=== PATIENT | male | born 1960 | race Caucasian/White ===

== ENCOUNTER 2022-01-24 20:04 | Emergency (ER) | payer OTHER ==
--- NOTE | 2022-01-24 20:53 | RAD REPORT ---
EXAM DESCRIPTION: RAD - Pelvis - 01/24/2022 8:47 pm CLINICAL HISTORY: BLUNT TRAUMA COMPARISON: No comparisons TECHNIQUE: AP imaging of the pelvis was obtained. FINDINGS: No fracture of the pelvis identifiable. Lower lumbar degenerative changes are separately d etailed. Severe bilateral hip joint degenerative changes are present. Spurring changes are seen along the acetabular rim. Bilateral femoral head AVN is present. Numerous subcortical degenerative cysts a re present in each femoral head with flattened contour along each superior femoral head, right greate r than left. No proximal femur fracture seen. IMPRESSION: Severe bilateral hip joint degenerative change as detailed. No acute traumatic injury to the bony pelvis.
--- NOTE | 2022-01-24 20:55 | RAD REPORT ---
EXAM DESCRIPTION: RAD - Hip Left 2 View - 01/24/2022 8:47 pm CLINICAL HISTORY: PAIN COMPARISON: No comparisons FINDINGS: AP and frogleg views of the left hip were obtained. No acute fracture. No dislocation femoral head. Severe joint degenerative changes are present. Spurri ng is seen along the acetabular rim. Femoral head is grossly abnormal with numerous subcortical degen erative cystic changes seen. There is partial collapse of the superior margin femoral head. No fractu re of the proximal femur seen. No periarticular abnormality. Partially imaged left hemipelvis shows n o acute finding. No soft tissue abnormality. IMPRESSION: Advanced degenerative change with left femoral head AVN with partial collapse along the superior articular margin.
--- NOTE | 2022-01-24 20:56 | RAD REPORT ---
EXAM DESCRIPTION: RAD - Lumbar Spine 3 Views - 01/24/2022 8:47 pm CLINICAL HISTORY: PAIN COMPARISON: No comparisons FINDINGS: A three-view lumbar spine examination was performed. L2-L5 bodies are normal in height and alignment. Slight wedging of the L1 body is present. No lytic o r blastic component seen. Posterior wall height of L1 is preserved. Prominent mid and lower lumbar fa cet joint degenerative changes are present. No disc space narrowing. No pars defects identified. IMPRESSION: Slight wedging of the L1 body with posterior wall height preserved. No lytic or blastic component seen. Age of any slight L1 compression fracture can't be determined. Prominent facet joint degenerative change in the mid and lower lumbar spine.
[2022-01-24] MEDS ORDERED: HYDROCODONE/APAP 10/325 TAB ONE (21:42)
--- NOTE | 2022-01-24 22:02 | ER ---
Nurse's Notes [facility] Name: Stefan Fuentes Age: 61 yrs Sex: Male : 1960 Arrival Date: 01/24/2022 Time: 20:09 Bed 23 Private MD: Diagnosis: Contusion of left hip;Avascular necrosis left femoral head Presentation: 01/24 20:17 Chief complaint: Patient states: I fell hard on my left hip this morning - into the ld1 grass. Denies hitting head, no LOC. Coronavirus screen: At this time, the client does not indicate any symptoms associated with coronavirus-19. Ebola Screen: No symptoms or risks identified at this time. Initial Sepsis Screen: Does the patient meet any 2 criteria? No. Patient's initial sepsis screen is negative. Does the patient have a suspected source of infection? No. Patient's initial sepsis screen is negative. Risk Assessment: Do you want to hurt yourself or someone else? Patient reports no desire to harm self or others. Onset of symptoms was January 24, 2022. 20:17 Method Of Arrival: Ambulatory ld1 20:17 Acuity: EMILY 3 ld1 Triage Assessment: 20:19 General: Appears in no apparent distress. uncomfortable, Behavior is calm, cooperative, ld1 appropriate for age. Pain: Complains of pain in left hip Pain does not radiate. Pain currently is 9 out of 10 on a pain scale. Quality of pain is described as sharp, shooting, throbbing. EENT: No signs and/or symptoms were reported regarding the EENT system. Neuro: Level of Consciousness is awake, alert, obeys commands, Oriented to person, place, time, situation, Appropriate for age. Cardiovascular: Capillary refill < 3 seconds Patient's skin is warm and dry. Respiratory: Airway is patent Respiratory effort is even, unlabored. GI: Abdomen is flat, non-distended. : No signs and/or symptoms were reported regarding the genitourinary system. Derm: No signs and/or symptoms reported regarding the dermatologic system. Musculoskeletal: No signs and/or symptoms reported regarding the musculoskeletal system. Historical: - Allergies: 20:19 No Known Allergies; ld1 - PMHx: 20:19 Hypertensive disorder; ld1 - PSHx: 20:19 None; ld1 - Immunization history:: Adult Immunizations up to date, Client reports having NOT received the Covid vaccine. - Social history:: Smoking status: Patient reports the use of cigarette tobacco products, smokes two packs cigarettes per day. Patient uses alcohol, occasionally. - Family history:: not pertinent. - Hospitalizations: : No recent hospitalization is reported. Screenin:29 Abuse screen: Denies threats or abuse. Denies injuries from another. Nutritional eh3 screening: No deficits noted. Tuberculosis screening: No symptoms or risk factors identified. Fall Risk Fall in past 12 months (25 points). Gait- Impaired (20 pts.). Total Coy Fall Scale indicates High Risk Score (45 or more points). Fall prevention measures have been instituted. Side Rails Up X 2 Placed Close to Nursing Station Frequent Obs/Assessments Occuring Family Present and informed to notify staff if the need to leave the bedside As available patient and family educated on Fall Prevention Program and Strategies. Assessment: 20:29 General: Appears in no apparent distress. uncomfortable. General: Behavior is calm, eh3 cooperative, appropriate for age. Pain: Complains of pain in left hip. Neuro: Level of Consciousness is awake, alert, obeys commands, Oriented to person, place, time, situation. Cardiovascular: Capillary refill < 3 seconds Patient's skin is warm and dry. Respiratory: Airway is patent Respiratory effort is even, unlabored, Respiratory pattern is regular, symmetrical. GI: No signs and/or symptoms were reported involving the gastrointestinal system. : No signs and/or symptoms were reported regarding the genitourinary system. EENT: No signs and/or symptoms were reported regarding the EENT system. Derm: No signs and/or symptoms reported regarding the dermatologic system. Musculoskeletal: Circulation, motion, and sensation intact. Range of motion: limited in left hip. 21:39 Neuro: Hernández Agitation-Sedation Scale (RASS): 0 - Alert and Calm. eh3 21:39 Reassessment: Patient and/or family updated on plan of care and expected duration. Pain eh3 level reassessed. Patient is alert, oriented x 3, equal unlabored respirations, skin warm/dry/pink. 22:19 Neuro: Hernández Agitation-Sedation Scale (RASS): 0 - Alert and Calm. eh3 Vital Signs: 20:22 BP 167 / 88; Pulse 78; Resp 18; Temp 98.1(TE); Pulse Ox 98% on R/A; Weight 90.72 kg; ld1 Height 5 ft. 10 in. (177.80 cm); Pain 9/10; 20:56 BP 118 / 87; Pulse 76; Resp 16; Pulse Ox 99% on R/A; Pain 10/10; eh3 21:39 BP 109 / 73; Pulse 93; Resp 16; Pulse Ox 99% on R/A; eh3 20:22 Body Mass Index 28.70 (90.72 kg, 177.80 cm) ld1 ED Course: 20:09 Patient arrived in ED. dt4 20:09 Markell Perez MD is Attending Physician. rn 20:19 Triage completed. ld1 20:19 Arm band placed on right wrist. ld1 20:29 Micheline Mahan, BISI is Primary Nurse. eh3 20:29 Patient has correct armband on for positive identification. Bed in low position. Call eh3 light in reach. Side rails up X2. Client placed on continuous cardiac and pulse oximetry monitoring. NIBP monitoring applied. 20:49 XRAY Hip LEFT 2 view In Process Unspecified. EDMS 20:49 XRAY Pelvis In Process Unspecified. EDMS 20:49 XRAY Lumbar Spine (3 Views) In Process Unspecified. EDMS 22:01 Tigre Miranda MD is Referral Physician. rn 22:19 No provider procedures requiring assistance completed. Patient did not have IV access eh3 during this emergency room visit. Administered Medications: 21:39 Drug: Hydrocodone-Acetaminophen (10 mg-500 mg) 1 tabs Route: PO; eh3 22:19 Follow up: Response: No adverse reaction eh3 Medication: 22:20 VIS not applicable for this client. eh3 Outcome: 22:01 Discharge ordered by . rn 22:19 Discharged to home ambulatory, with family. eh3 22:19 Condition: stable 22:19 Discharge instructions given to patient, family, Instructed on discharge instructions, follow up and referral plans. medication usage, Demonstrated understanding of instructions, follow-up care, medications, Prescriptions given X 1. 22:20 Patient left the ED. eh3 Signatures: Dispatcher [employer] EDMS Markell Perez MD MD rn Dibbern, Lauren, RN RN ld1 Micheline Mahan RN RN eh3 Angélica Infante dt4 Corrections: (The following items were deleted from the chart) 20:26 20:22 Resp 18bpm; Pulse Ox 98% RA; Temp 98.1F Temporal; 90.72 kg; Height 5 ft. 10 in.; ld1 BMI: 28.7; Pain 9/10; ld1
--- NOTE | 2022-01-24 22:02 | EDPHYS ---
Physician Documentation [facility] Name: Stefan Fuentes Age: 61 yrs Sex: Male : 1960 Arrival Date: 01/24/2022 Time: 20:09 Bed 23 Private MD: ED Physician Markell Perez HPI: 01/24 21:56 This 61 yrs old Male presents to ER via Ambulatory with complaints of Hip Injury. rn 21:56 The patient or guardian reports an injury, pain. that occurred at home, sustained from rn a fall, There is no obvious deformity, The patient is able to self ambulate. The patient is able to bear their full body weight. There is no radiation of the patient's discomfort. The complaints affect the left hip. Onset: The symptoms/episode began/occurred just prior to arrival. Modifying factors: The symptoms are alleviated by remaining still, the symptoms are aggravated by weight bearing. Severity of symptoms: At their worst the symptoms were mild, in the emergency department the symptoms are unchanged. The patient has not experienced similar symptoms in the past. The patient has not recently seen a physician. Pt reports fall from standing, hit left hip, reports pain to left hip. Is ambulatory and pain not improving. NO weakness. + chronic pain to both hips and previous lumbar fracture. . Historical: - Allergies: 20:19 No Known Allergies; ld1 - PMHx: 20:19 Hypertensive disorder; ld1 - PSHx: 20:19 None; ld1 - Immunization history:: Adult Immunizations up to date, Client reports having NOT received the Covid vaccine. - Social history:: Smoking status: Patient reports the use of cigarette tobacco products, smokes two packs cigarettes per day. Patient uses alcohol, occasionally. - Family history:: not pertinent. - Hospitalizations: : No recent hospitalization is reported. ROS: 21:56 Constitutional: Negative for fever, chills, and weight loss, Eyes: Negative for injury, rn pain, redness, and discharge, Neck: Negative for injury, pain, and swelling, Cardiovascular: Negative for chest pain, palpitations, and edema, Respiratory: Negative for shortness of breath, cough, wheezing, and pleuritic chest pain, Abdomen/GI: Negative for abdominal pain, nausea, vomiting, diarrhea, and constipation, Back: + low back pain : Negative for injury, bleeding, discharge, and swelling, MS/Extremity: + left hip pain Skin: Negative for injury, rash, and discoloration, Neuro: Negative for headache, weakness, numbness, tingling, and seizure. Exam: 21:56 Constitutional: This is a well developed, well nourished patient who is awake, alert, rn limping, but walking with his walker to triage Head/Face: Normocephalic, atraumatic. Neck: Trachea midline, no thyromegaly or masses palpated, and no cervical lymphadenopathy. Supple, full range of motion without nuchal rigidity, or vertebral point tenderness. No Meningismus. Cardiovascular: Regular rate and rhythm. No pulse deficits. Respiratory: No increased work of breathing, no retractions or nasal flaring. Abdomen/GI: Soft, non-tender Back: No spinal tenderness. No costovertebral tenderness. Full range of motion. Skin: Warm, dry with normal turgor. Normal color with no rashes, no lesions, and no evidence of cellulitis. MS/ Extremity: Pulses equal, no cyanosis. Neurovascular intact. + tenderness left lateral hip, no anterior hip tenderness. Neuro: Awake and alert, GCS 15 Vital Signs: 20:22 BP 167 / 88; Pulse 78; Resp 18; Temp 98.1(TE); Pulse Ox 98% on R/A; Weight 90.72 kg; ld1 Height 5 ft. 10 in. (177.80 cm); Pain 9/10; 20:56 BP 118 / 87; Pulse 76; Resp 16; Pulse Ox 99% on R/A; Pain 10/10; eh3 21:39 BP 109 / 73; Pulse 93; Resp 16; Pulse Ox 99% on R/A; eh3 20:22 Body Mass Index 28.70 (90.72 kg, 177.80 cm) ld1 MDM: 20:09 Patient medically screened. rn 21:56 Differential diagnosis: hip fracture, intertrochanteric fracture, femoral neck rn fracture, bursitis, strain, contusion. Data reviewed: vital signs, nurses notes, radiologic studies, plain films, and as a result, I will discharge patient. Counseling: I had a detailed discussion with the patient and/or guardian regarding: the historical points, exam findings, and any diagnostic results supporting the discharge/admit diagnosis, radiology results, the need for outpatient follow up, to return to the emergency department if symptoms worsen or persist or if there are any questions or concerns that arise at home. Response to treatment: the patient's symptoms have mildly improved after treatment, and as a result, I will discharge patient. Special discussion: I discussed with the patient/guardian in detail that at this point there is no indication for admission to the hospital. It is understood, however, that if the symptoms persist or worsen the patient needs to return immediately for re-evaluation. Based on the history and exam findings, there is no indication for further emergent testing or inpatient evaluation. I discussed with the patient/guardian the need to see the orthopedic surgeon for further evaluation of the symptoms. ED course: Pt notified and printed results of AVN, likely explaining his chronic left hip pain. Will f/u with ortho. . 01/24 20:21 Order name: XRAY Hip LEFT 2 view; Complete Time: 21:16 rn 01/24 20:21 Order name: XRAY Pelvis; Complete Time: 21:16 rn 01/24 20:21 Order name: XRAY Lumbar Spine (3 Views); Complete Time: 21:16 rn Administered Medications: 21:39 Drug: Hydrocodone-Acetaminophen (10 mg-500 mg) 1 tabs Route: PO; eh3 22:19 Follow up: Response: No adverse reaction eh3 Disposition Summary: 01/24/22 22:01 Discharge Ordered Location: Home rn Problem: new rn Symptoms: have improved rn Condition: Stable rn Diagnosis - Contusion of left hip rn - Avascular necrosis left femoral head rn Followup: rn - With: Tigre Miranda MD - When: As needed - Reason: Recheck today's complaints, Re-evaluation by your physician Discharge Instructions: - Contusion rn - Avascular Necrosis rn - Discharge Summary Sheet pm1 - Form - Return To Work eh3 - Form - Excuse from Work, School, or Physical Activity eh3 Forms: - Medication Reconciliation Form rn - Thank You Letter rn - Antibiotic creative intern - Prescription Opioid Use rn - Family Work Release eh3 - School release form kl Prescriptions: - Tramadol 50 mg Oral Tablet - take 1 tablet by ORAL route every 8 hours as needed; 12 tablet; Refills: 0, pm1 Product Selection Permitted Signatures: Dispatcher [employer] EDMarkell Romero MD MD rn Dibbern, Lauren, RN RN ld1 Mahan, Micheline, RN RN eh3
[2022-01-24 23:29] VITALS: TEMP 98.1
[2022-01-24 23:30] VITALS: O2SAT 99
[2022-01-24 23:32] VITALS: BP 109/73
== END 2022-01-24 22:20 | disposition home or self-care (01) ==
LOC: ER 20:04
DX: S70.02XA Contusion of left hip, initial encounter (principal); M87.852 Other osteonecrosis, left femur; F17.210 Nicotine dependence, cigarettes, uncomplicated
CPT/HCPCS: 72100; 72170; 99283